=== PATIENT | male | born 1970 | race Caucasian/White ===

== ENCOUNTER 2018-07-28 04:01 | Emergency (ER) | payer OTHER | END 2018-07-28 04:33 | disposition home or self-care (01) | LOC: FTE 04:01 | DX: J02.9 Acute pharyngitis, unspecified (principal); Z87.891 Personal history of nicotine dependence | CPT/HCPCS: 99283 ==

== ENCOUNTER 2018-07-29 02:33 | Emergency (ER) | payer OTHER ==
[2018-07-29] MEDS: DEXAMETHASONE 10 MG/ML 1 ML INJ IM ×2 (03:27→03:40)
== END 2018-07-29 03:52 | disposition home or self-care (01) ==
LOC: FTE 02:33
DX: J02.9 Acute pharyngitis, unspecified (principal); Z87.891 Personal history of nicotine dependence
CPT/HCPCS: 96372; 99284-25

== ENCOUNTER 2018-08-13 14:26 | Emergency (ER) | payer OTHER ==
[2018-08-13] MEDS: ONDANSETRON 4 MG INJ IV (15:44)
[2018-08-13] MEDS: SOD CHLORIDE 0.9% 1,000 ML IV (15:44)
[2018-08-13] MEDS: HYDROmorphONE 1 MG/ML SYG IV (15:44)
[2018-08-13 15:54] LABS: ADD MAN DIFF? NO
[2018-08-13 16:02] LABS: BASOPHILS % 0.2 % (0.0-2.0); EOSINOPHILS % 0.1 % (0.0-7.0); HEMATOCRIT 43.8 % (42.0-52.0); HEMOGLOBIN 15.2 g/dl (14.0-18.0); LYMPHOCYTES # 2.6 10^3/ul (0.8-2.9); LYMPHOCYTES % 17.7 % (15.0-51.0); MEAN CORPUSCULAR HEMOGLOBIN 31.8 pg (29.0-33.0); MEAN CORPUSCULAR HGB CONC 34.7 g/dl (32.0-37.0); MEAN CORPUSCULAR VOLUME 91.6 fl (82.0-101.0); MEAN PLATELET VOLUME 9.3 fl (7.4-10.4); MONOCYTE # 0.8 10^3/ul (0.3-0.9); MONOCYTES % 5.1 % (0.0-11.0); NEUTROPHIL # 11.4 10^3/ul (1.6-7.5); NEUTROPHILS % 76.5 % (39.0-77.0); PLATELET COUNT 331 10^3/UL (140-415); RED BLOOD COUNT 4.78 10^6/ul (4.70-6.10); RED CELL DISTRIBUTION WIDTH 11.9 % (11.5-14.5)
[2018-08-13 16:02] LABS: WHITE BLOOD COUNT 14.8 10^3/ul (4.8-10.8)
[2018-08-13 16:18] LABS: ANION GAP 12 (5-13); BLOOD UREA NITROGEN 25 mg/dl (7-20); CALCIUM 9.7 mg/dl (8.4-10.2); CARBON DIOXIDE 28 mmol/L (21-31); CHLORIDE 102 mmol/L (97-110); CREATININE 0.86 mg/dl (0.61-1.24); Estimated GFR > 60 mL/min (>60); GLUCOSE 102 mg/dl (70-220); SODIUM 142 mmol/L (135-144)
[2018-08-13 16:19] LABS: ALANINE AMINOTRANSFERASE 84 IU/L (13-69); ALBUMIN 4.9 g/dl (3.3-4.9); ALBUMIN/GLOBULIN RATIO 1.16; ALKALINE PHOSPHATASE 138 IU/L (42-121); ASPARTATE AMINO TRANSFERASE 48 IU/L (15-46); BILIRUBIN,INDIRECT 0.5 mg/dl (0-1.1); BILIRUBIN,TOTAL 0.5 mg/dl (0.2-1.3); LIPASE 45 U/L (23-300); TOTAL PROTEIN 9.1 g/dl (6.1-8.1)
[2018-08-13 16:30] LABS: TROPONIN-I < 0.012 ng/ml (0.000-0.120)
[2018-08-13] MEDS: SOD CHLORIDE 0.9% 100 ML (16:50)
[2018-08-13] MEDS: IOHEXOL 300MG/ML 150 ML BTL (16:51)
[2018-08-13 17:11] LABS: ADD UMIC NO; UR ASCORBIC ACID NEGATIVE (NEGATIVE); UR BILIRUBIN (Dip) NEGATIVE (NEGATIVE); UR BLOOD (Dip) NEGATIVE (NEGATIVE); UR CLARITY CLEAR (CLEAR); UR COLOR YELLOW (YELLOW); UR GLUCOSE (Dip) NEGATIVE (NEGATIVE); UR KETONES (Dip) NEGATIVE (NEGATIVE); UR LEUKOCYTE ESTERASE (Dip) NEGATIVE Leu/ul (NEGATIVE); UR NITRITE (Dip) NEGATIVE (NEGATIVE); UR SPECIFIC GRAVITY (Dip) 1.048 (1.003-1.030); UR TOTAL PROTEIN (Dip) NEGATIVE (NEGATIVE); UR UROBILINOGEN (Dip) 1+ mg/dL (NEGATIVE)
[2018-08-13] MEDS: KETOROLAC 30 MG INJ IV (18:01)
[2018-08-13] MEDS: PIPER-TAZO 3.375 GM IV (PMX) 100 ML IVPB (18:01)
== END 2018-08-13 19:10 | disposition home or self-care (01) ==
LOC: FTE 14:26
DX: K80.20 Calculus of gallbladder without cholecystitis without obstruction (principal); F17.210 Nicotine dependence, cigarettes, uncomplicated
CPT/HCPCS: 36415; 71045; 74177; 80053; 81003; 83690; 84484; 85025; 93005; 96374; 96375; 99285-25

== ENCOUNTER 2018-08-16 15:02 | Inpatient (IN) | payer OTHER ==
[2018-08-16 16:28] LABS: ADD MAN DIFF? NO
[2018-08-16] MEDS: morphine 4 MG/ML VIAL IV ×2 (16:33→19:48)
[2018-08-16] MEDS: ONDANSETRON 4 MG INJ IV ×2 (16:33→19:48)
[2018-08-16] MEDS: SOD CHLORIDE 0.9% 1,000 ML IV ×2 (16:34→22:09)
[2018-08-16 16:38] LABS: WHITE BLOOD COUNT 9.2 10^3/ul (4.8-10.8)
[2018-08-16 16:38] LABS: BASOPHILS % 0.2 % (0.0-2.0); EOSINOPHILS % 0.2 % (0.0-7.0); HEMATOCRIT 41.3 % (42.0-52.0); HEMOGLOBIN 14.5 g/dl (14.0-18.0); LYMPHOCYTES # 2.6 10^3/ul (0.8-2.9); MEAN CORPUSCULAR HEMOGLOBIN 32.2 pg (29.0-33.0); MEAN CORPUSCULAR HGB CONC 35.1 g/dl (32.0-37.0); MEAN CORPUSCULAR VOLUME 91.8 fl (82.0-101.0); MEAN PLATELET VOLUME 9.1 fl (7.4-10.4); MONOCYTE # 0.6 10^3/ul (0.3-0.9); MONOCYTES % 6.2 % (0.0-11.0); NEUTROPHILS % 65.1 % (39.0-77.0); PLATELET COUNT 312 10^3/UL (140-415); RED CELL DISTRIBUTION WIDTH 11.7 % (11.5-14.5)
[2018-08-16 16:44] LABS: ADD UMIC NO; UR ASCORBIC ACID NEGATIVE (NEGATIVE); UR BILIRUBIN (Dip) NEGATIVE (NEGATIVE); UR BLOOD (Dip) NEGATIVE (NEGATIVE); UR CLARITY CLEAR (CLEAR); UR COLOR YELLOW (YELLOW); UR GLUCOSE (Dip) NEGATIVE (NEGATIVE); UR KETONES (Dip) NEGATIVE (NEGATIVE); UR LEUKOCYTE ESTERASE (Dip) NEGATIVE Leu/ul (NEGATIVE); UR NITRITE (Dip) NEGATIVE (NEGATIVE); UR SPECIFIC GRAVITY (Dip) 1.012 (1.003-1.030); UR TOTAL PROTEIN (Dip) NEGATIVE (NEGATIVE); UR UROBILINOGEN (Dip) NEGATIVE (NEGATIVE)
[2018-08-16 16:57] LABS: ALANINE AMINOTRANSFERASE 67 IU/L (13-69); ALBUMIN 4.5 g/dl (3.3-4.9); ALBUMIN/GLOBULIN RATIO 1.18; ALKALINE PHOSPHATASE 121 IU/L (42-121); ANION GAP 9 (5-13); ASPARTATE AMINO TRANSFERASE 40 IU/L (15-46); BILIRUBIN,INDIRECT 0.5 mg/dl (0-1.1); BILIRUBIN,TOTAL 0.5 mg/dl (0.2-1.3); BLOOD UREA NITROGEN 22 mg/dl (7-20); CALCIUM 9.6 mg/dl (8.4-10.2); CARBON DIOXIDE 34 mmol/L (21-31); CHLORIDE 95 mmol/L (97-110); CREATININE 0.95 mg/dl (0.61-1.24); Estimated GFR > 60 mL/min (>60); GLUCOSE 100 mg/dl (70-220); LIPASE 44 U/L (23-300); POTASSIUM 4.5 mmol/L (3.5-5.1); SODIUM 138 mmol/L (135-144); TOTAL PROTEIN 8.3 g/dl (6.1-8.1)
[2018-08-16] MEDS ORDERED: ACETAMINOPHEN 325 MG TAB PO ×2 (19:00→21:00)
[2018-08-16] MEDS ORDERED: NACL 0.9% 3 ML SYG IV (21:00)
[2018-08-16] MEDS ORDERED: BISACODYL (EC) 5 MG TAB PO (21:00)
[2018-08-16] MEDS ORDERED: DOCUSATE SODIUM 100 MG CAP PO (21:00)
[2018-08-16] MEDS ORDERED: ONDANSETRON 4 MG INJ IV (21:00)
[2018-08-16] MEDS: HYDROmorphONE 0.5 MG/0.5 ML SYG IV (21:10)
[2018-08-16] MEDS: PIPER-TAZO 3.375 GM IV (PMX) 100 ML IVPB (22:09)
[2018-08-16] MEDS ORDERED: HYDROmorphONE 0.5 MG/0.5 ML SYG IV (23:00)
[2018-08-17] MEDS: PIPER-TAZO 3.375 GM IV (PMX) 100 ML IVPB ×3 (00:32→13:40)
[2018-08-17 05:18] LABS: ADD MAN DIFF? NO
[2018-08-17 05:21] LABS: BASOPHILS % 0.3 % (0.0-2.0); EOSINOPHILS % 0.6 % (0.0-7.0); HEMOGLOBIN 13.6 g/dl (14.0-18.0); LYMPHOCYTES # 2.2 10^3/ul (0.8-2.9); LYMPHOCYTES % 25.1 % (15.0-51.0); MEAN CORPUSCULAR HEMOGLOBIN 31.9 pg (29.0-33.0); MEAN CORPUSCULAR VOLUME 93.7 fl (82.0-101.0); MEAN PLATELET VOLUME 9.8 fl (7.4-10.4); MONOCYTES % 8.8 % (0.0-11.0); NEUTROPHIL # 5.6 10^3/ul (1.6-7.5); NEUTROPHILS % 64.9 % (39.0-77.0); PLATELET COUNT 276 10^3/UL (140-415); RED BLOOD COUNT 4.27 10^6/ul (4.70-6.10); RED CELL DISTRIBUTION WIDTH 11.9 % (11.5-14.5)
[2018-08-17 05:21] LABS: WHITE BLOOD COUNT 8.7 10^3/ul (4.8-10.8)
[2018-08-17 05:22] LABS: EOSINOPHILS # 0.1 10^3/ul (0.0-0.5); MONOCYTE # 0.8 10^3/ul (0.3-0.9)
[2018-08-17 05:48] LABS: ALANINE AMINOTRANSFERASE 61 IU/L (13-69); ALBUMIN 4.2 g/dl (3.3-4.9); ALKALINE PHOSPHATASE 104 IU/L (42-121); ANION GAP 8 (5-13); ASPARTATE AMINO TRANSFERASE 37 IU/L (15-46); BILIRUBIN,INDIRECT 0.6 mg/dl (0-1.1); BILIRUBIN,TOTAL 0.6 mg/dl (0.2-1.3); BLOOD UREA NITROGEN 22 mg/dl (7-20); CALCIUM 9.3 mg/dl (8.4-10.2); CARBON DIOXIDE 34 mmol/L (21-31); CHLORIDE 98 mmol/L (97-110); CHOL/HDL RATIO 4.5 RATIO; CHOLESTEROL 123 mg/dl (100-200); CREATININE 1.05 mg/dl (0.61-1.24); Estimated GFR > 60 mL/min (>60); GLUCOSE 87 mg/dl (70-220); HDL CHOLESTEROL 27 mg/dl (28-71); LDL CHOLESTEROL,CALCULATED 75 mg/dl; MAGNESIUM 2.1 mg/dl (1.7-2.5); POTASSIUM 5.1 mmol/L (3.5-5.1); SODIUM 140 mmol/L (135-144); TOTAL PROTEIN 7.2 g/dl (6.1-8.1); TRIGLYCERIDES 103 mg/dl (0-149)
[2018-08-17] MEDS: SOD CHLORIDE 0.9% 1,000 ML IV (05:48)
[2018-08-17 06:25] LABS: INR 1.03; PARTIAL THROMBOPLASTIN TIME 28.8 Sec (23.0-35.0); PROTIME 13.6 Sec (11.9-14.9); PT RATIO 1.1
[2018-08-17 07:10] LABS: HEMOGLOBIN A1C 5.3 % (0-5.9)
[2018-08-17] MEDS: HYDROmorphONE 1 MG/ML SYG IV (23:57)
[2018-08-18 06:00] LABS: ADD MAN DIFF? NO
[2018-08-18 06:01] LABS: WHITE BLOOD COUNT 8.3 10^3/ul (4.8-10.8)
[2018-08-18 06:01] LABS: BASOPHIL # 0.1 10^3/ul (0.0-0.1); BASOPHILS % 0.6 % (0.0-2.0); EOSINOPHILS # 0.1 10^3/ul (0.0-0.5); EOSINOPHILS % 1.2 % (0.0-7.0); HEMATOCRIT 42.2 % (42.0-52.0); HEMOGLOBIN 14.6 g/dl (14.0-18.0); LYMPHOCYTES # 2.6 10^3/ul (0.8-2.9); LYMPHOCYTES % 31.4 % (15.0-51.0); MEAN CORPUSCULAR HEMOGLOBIN 32.3 pg (29.0-33.0); MEAN CORPUSCULAR HGB CONC 34.6 g/dl (32.0-37.0); MEAN CORPUSCULAR VOLUME 93.4 fl (82.0-101.0); MEAN PLATELET VOLUME 9.8 fl (7.4-10.4); MONOCYTE # 0.6 10^3/ul (0.3-0.9); MONOCYTES % 7.6 % (0.0-11.0); NEUTROPHIL # 4.9 10^3/ul (1.6-7.5); NEUTROPHILS % 58.8 % (39.0-77.0); PLATELET COUNT 288 10^3/UL (140-415); RED BLOOD COUNT 4.52 10^6/ul (4.70-6.10); RED CELL DISTRIBUTION WIDTH 11.8 % (11.5-14.5)
[2018-08-18 06:31] LABS: ALANINE AMINOTRANSFERASE 84 IU/L (13-69); ALBUMIN 4.3 g/dl (3.3-4.9); ALBUMIN/GLOBULIN RATIO 1.19; ALKALINE PHOSPHATASE 138 IU/L (42-121); ANION GAP 9 (5-13); ASPARTATE AMINO TRANSFERASE 48 IU/L (15-46); BILIRUBIN,INDIRECT 0.4 mg/dl (0-1.1); BILIRUBIN,TOTAL 0.4 mg/dl (0.2-1.3); BLOOD UREA NITROGEN 20 mg/dl (7-20); CALCIUM 9.6 mg/dl (8.4-10.2); CARBON DIOXIDE 33 mmol/L (21-31); CHLORIDE 99 mmol/L (97-110); CREATININE 0.94 mg/dl (0.61-1.24); Estimated GFR > 60 mL/min (>60); GLUCOSE 94 mg/dl (70-220); POTASSIUM 4.7 mmol/L (3.5-5.1); SODIUM 141 mmol/L (135-144); TOTAL PROTEIN 7.9 g/dl (6.1-8.1)
[2018-08-18 06:32] LABS: CHOL/HDL RATIO 3.7 RATIO; CHOLESTEROL 140 mg/dl (100-200); HDL CHOLESTEROL 37 mg/dl (28-71); LDL CHOLESTEROL,CALCULATED 84 mg/dl; MAGNESIUM 2.1 mg/dl (1.7-2.5); TRIGLYCERIDES 95 mg/dl (0-149)
== END 2018-08-18 14:51 | disposition home or self-care (01) | DRG 445 ==
LOC: E/R 15:02 → PP2 18:53
DX: K80.10 Calculus of gallbladder with chronic cholecystitis without obstruction (principal); E87.3 Alkalosis; M54.9 Dorsalgia, unspecified; G47.30 Sleep apnea, unspecified; E66.9 Obesity, unspecified; Z68.37 Body mass index [BMI] 37.0-37.9, adult; E86.0 Dehydration
CPT/HCPCS: 36415; 72072; 72100; 76705; 80053; 80061; 81003; 83036; 83690; 83735; 84100; 84443; 85025; 85610; 85730; 94660; 96361; 96374; 96375; 99285-25

== ENCOUNTER 2018-09-01 02:11 | Inpatient (IN) | payer OTHER ==
[2018-09-01] MEDS ORDERED: ONDANSETRON 4 MG INJ ×2 (02:41→19:24)
[2018-09-01] MEDS ORDERED: morphine 4 MG/ML VIAL (02:42)
[2018-09-01 02:45] LABS: ADD MAN DIFF? NO
[2018-09-01 02:47] LABS: WHITE BLOOD COUNT 6.9 10^3/ul (4.8-10.8)
[2018-09-01 02:47] LABS: BASOPHILS % 0.4 % (0.0-2.0); EOSINOPHILS # 0.2 10^3/ul (0.0-0.5); EOSINOPHILS % 2.3 % (0.0-7.0); HEMATOCRIT 42.4 % (42.0-52.0); HEMOGLOBIN 14.5 g/dl (14.0-18.0); LYMPHOCYTES # 3.8 10^3/ul (0.8-2.9); LYMPHOCYTES % 55.5 % (15.0-51.0); MEAN CORPUSCULAR HEMOGLOBIN 31.3 pg (29.0-33.0); MEAN CORPUSCULAR HGB CONC 34.2 g/dl (32.0-37.0); MEAN CORPUSCULAR VOLUME 91.4 fl (82.0-101.0); MEAN PLATELET VOLUME 9.8 fl (7.4-10.4); MONOCYTE # 0.5 10^3/ul (0.3-0.9); MONOCYTES % 6.8 % (0.0-11.0); NEUTROPHIL # 2.4 10^3/ul (1.6-7.5); PLATELET COUNT 239 10^3/UL (140-415); RED BLOOD COUNT 4.64 10^6/ul (4.70-6.10)
[2018-09-01] MEDS: SOD CHLORIDE 0.9% 1,000 ML IV ×4 (02:55→18:33)
[2018-09-01] MEDS: ONDANSETRON 4 MG INJ IV ×2 (02:55→20:23)
[2018-09-01] MEDS: morphine 4 MG/ML VIAL IV (02:55)
[2018-09-01 03:16] LABS: ALANINE AMINOTRANSFERASE 55 IU/L (13-69); ALBUMIN 4.4 g/dl (3.3-4.9); ALBUMIN/GLOBULIN RATIO 1.18; ALKALINE PHOSPHATASE 149 IU/L (42-121); ANION GAP 10 (5-13); ASPARTATE AMINO TRANSFERASE 39 IU/L (15-46); BILIRUBIN,INDIRECT 0.2 mg/dl (0-1.1); BILIRUBIN,TOTAL 0.2 mg/dl (0.2-1.3); BLOOD UREA NITROGEN 21 mg/dl (7-20); CALCIUM 9.6 mg/dl (8.4-10.2); CARBON DIOXIDE 28 mmol/L (21-31); CHLORIDE 105 mmol/L (97-110); Estimated GFR > 60 mL/min (>60); GLUCOSE 115 mg/dl (70-220); LIPASE 131 U/L (23-300); POTASSIUM 4.2 mmol/L (3.5-5.1); SODIUM 143 mmol/L (135-144); TOTAL PROTEIN 8.1 g/dl (6.1-8.1)
[2018-09-01] MEDS ORDERED: HYDROmorphONE 1 MG/ML SYG (03:21)
[2018-09-01] MEDS: HYDROmorphONE 1 MG/ML SYG IV (03:30)
[2018-09-01] MEDS: HYDROmorphONE 0.5 MG/0.5 ML SYG IV ×3 (03:56→11:36)
[2018-09-01] MEDS: LIDOCAINE/MYLANTA 40 ML BTL PO (03:57)
[2018-09-01] MEDS ORDERED: DOCUSATE SODIUM 100 MG CAP PO (06:30)
[2018-09-01] MEDS ORDERED: ONDANSETRON 4 MG INJ IV ×2 (06:30→21:00)
[2018-09-01] MEDS ORDERED: NACL 0.9% 3 ML SYG IV (06:30)
[2018-09-01] MEDS ORDERED: BISACODYL (EC) 5 MG TAB PO (06:30)
[2018-09-01] MEDS ORDERED: ACETAMINOPHEN 325 MG TAB PO ×2 (06:30→21:00)
[2018-09-01] MEDS: PIPER-TAZO 3.375 GM IV (PMX) 100 ML IVPB ×3 (06:43→18:28)
[2018-09-01 10:03] LABS: ADD UMIC NO; UR ASCORBIC ACID NEGATIVE (NEGATIVE); UR BILIRUBIN (Dip) NEGATIVE (NEGATIVE); UR BLOOD (Dip) NEGATIVE (NEGATIVE); UR CLARITY SLIGHTLY CLOUDY (CLEAR); UR COLOR YELLOW (YELLOW); UR GLUCOSE (Dip) NEGATIVE (NEGATIVE); UR KETONES (Dip) 2+ mg/dL (NEGATIVE); UR LEUKOCYTE ESTERASE (Dip) NEGATIVE Leu/ul (NEGATIVE); UR MUCUS FEW /HPF (NONE SEEN); UR NITRITE (Dip) NEGATIVE (NEGATIVE); UR RBC 2 /HPF (0-5); UR SPECIFIC GRAVITY (Dip) 1.023 (1.003-1.030); UR TOTAL PROTEIN (Dip) NEGATIVE (NEGATIVE); UR UROBILINOGEN (Dip) 2+ mg/dL (NEGATIVE); UR WBC 2 /HPF (0-5)
[2018-09-01] MEDS: HYDROCODONE/APAP (10/325) TAB PO (13:18)
[2018-09-01] MEDS ORDERED: MEPERIDINE 25 MG INJ IV (18:30)
[2018-09-01] MEDS ORDERED: METOCLOPRAMIDE 10 MG INJ IV (18:30)
[2018-09-01] MEDS ORDERED: hydrALAzine 20 MG INJ IV (18:30)
[2018-09-01] MEDS ORDERED: EPHEDrine SULFATE 50 MG/5 ML SYG IV (18:30)
[2018-09-01] MEDS ORDERED: FENTAnyl 50 MCG/ML VIAL IV ×3 (18:30)
[2018-09-01] MEDS ORDERED: HYDROmorphONE 1 MG/5 ML IV SYRINGE IV ×2 (18:30)
[2018-09-01] MEDS ORDERED: LABETALOL HCL 20MG INJ IV (18:30)
[2018-09-01] MEDS ORDERED: OXYCODONE/ACETAMINOPHEN (5/325) TAB PO ×2 (18:30)
[2018-09-01] MEDS ORDERED: DIPHENHYDRAMINE 50 MG INJ IV (18:30)
[2018-09-01] MEDS ORDERED: MIDAZOLAM 1 MG/ML 2 ML INJ (18:33)
[2018-09-01] MEDS ORDERED: HYDROmorphONE 2 MG/ML SYG (18:33)
[2018-09-01] MEDS ORDERED: ROCURONIUM 50 MG INJ (18:33)
[2018-09-01] MEDS ORDERED: PROPOFOL 20 ML ×2 (18:33→19:54)
[2018-09-01] MEDS ORDERED: ROPIVACAINE 0.5 % 30 ML VIAL (18:35)
[2018-09-01] MEDS: BUPIVACAINE 0.25% (MPF) 30 ML INJ (19:03)
[2018-09-01] MEDS: LIDOCAINE 1%/EPI 30 ML INJ (19:03)
[2018-09-01] MEDS ORDERED: KETOROLAC 30 MG INJ (19:24)
[2018-09-01] MEDS ORDERED: SUGAMMADEX SODIUM 200 MG/2 ML VIAL IV (19:24)
[2018-09-01] MEDS ORDERED: METOCLOPRAMIDE 10 MG INJ (19:24)
[2018-09-01] MEDS ORDERED: DEXAMETHASONE 4 MG/ML 1 ML INJ (19:24)
[2018-09-01] MEDS ORDERED: LABETALOL HCL 20MG INJ (19:29)
[2018-09-01] MEDS: HYDROmorphONE 1 MG/5 ML IV SYRINGE IV (20:23)
[2018-09-01] MEDS ORDERED: HYDROCODONE/APAP (5/325) TAB PO (21:00)
[2018-09-01] MEDS: D5W-0.45 NACL + KCL 20 MEQ 1,000 ML IV (21:31)
[2018-09-02] MEDS: PIPER-TAZO 3.375 GM IV (PMX) 100 ML IVPB ×5 (00:12→23:57)
[2018-09-02] MEDS: D5W-0.45 NACL + KCL 20 MEQ 1,000 ML IV ×3 (06:08→21:07)
[2018-09-02 06:58] LABS: ADD MAN DIFF? NO
[2018-09-02 07:08] LABS: WHITE BLOOD COUNT 8.9 10^3/ul (4.8-10.8)
[2018-09-02 07:08] LABS: BASOPHILS % 0.2 % (0.0-2.0); EOSINOPHILS % 0.1 % (0.0-7.0); HEMATOCRIT 39.7 % (42.0-52.0); HEMOGLOBIN 13.4 g/dl (14.0-18.0); LYMPHOCYTES # 1.2 10^3/ul (0.8-2.9); MEAN CORPUSCULAR HEMOGLOBIN 31.5 pg (29.0-33.0); MEAN CORPUSCULAR HGB CONC 33.8 g/dl (32.0-37.0); MEAN CORPUSCULAR VOLUME 93.2 fl (82.0-101.0); MEAN PLATELET VOLUME 9.9 fl (7.4-10.4); MONOCYTE # 0.5 10^3/ul (0.3-0.9); MONOCYTES % 5.6 % (0.0-11.0); NEUTROPHIL # 7.2 10^3/ul (1.6-7.5); NEUTROPHILS % 80.8 % (39.0-77.0); PLATELET COUNT 218 10^3/UL (140-415); RED BLOOD COUNT 4.26 10^6/ul (4.70-6.10); RED CELL DISTRIBUTION WIDTH 12.1 % (11.5-14.5)
[2018-09-02 07:18] LABS: HEMOGLOBIN A1C 5.3 % (0-5.9)
[2018-09-02 07:44] LABS: ALANINE AMINOTRANSFERASE 79 IU/L (13-69); ALBUMIN 4.1 g/dl (3.3-4.9); ALBUMIN/GLOBULIN RATIO 1.51; ALKALINE PHOSPHATASE 92 IU/L (42-121); ANION GAP 9 (5-13); ASPARTATE AMINO TRANSFERASE 68 IU/L (15-46); BILIRUBIN,INDIRECT 0.7 mg/dl (0-1.1); BILIRUBIN,TOTAL 0.7 mg/dl (0.2-1.3); BLOOD UREA NITROGEN 13 mg/dl (7-20); CALCIUM 9.2 mg/dl (8.4-10.2); CARBON DIOXIDE 28 mmol/L (21-31); CHLORIDE 104 mmol/L (97-110); CREATININE 0.85 mg/dl (0.61-1.24); Estimated GFR > 60 mL/min (>60); GLUCOSE 127 mg/dl (70-220); MAGNESIUM 1.9 mg/dl (1.7-2.5); POTASSIUM 4.7 mmol/L (3.5-5.1); SODIUM 141 mmol/L (135-144); TOTAL PROTEIN 6.8 g/dl (6.1-8.1)
[2018-09-02 07:53] LABS: T3 UPTAKE 35.2 % (23.5-40.5); T4 (THYROXINE) 8.8 ug/dl (5.5-11.0)
[2018-09-02] MEDS: HYDROmorphONE 0.5 MG/0.5 ML SYG IV ×3 (08:01→17:01)
[2018-09-02] MEDS: SOD CHLORIDE 0.9% 1,000 ML IV ×2 (08:01→19:33)
[2018-09-02] MEDS: ENOXAPARIN 40 MG/0.4 ML SYG SC (08:06)
[2018-09-02 08:07] LABS: THYROID STIMULATING HORMONE 0.415 MIU/L (0.465-4.680)
[2018-09-03] MEDS: D5W-0.45 NACL + KCL 20 MEQ 1,000 ML IV ×3 (02:32→12:32)
[2018-09-03] MEDS: KETOROLAC 30 MG INJ IV ×2 (03:16→09:51)
[2018-09-03] MEDS: PIPER-TAZO 3.375 GM IV (PMX) 100 ML IVPB ×2 (05:44→11:36)
[2018-09-03] MEDS: ENOXAPARIN 40 MG/0.4 ML SYG SC (06:27)
[2018-09-03 07:24] LABS: ADD MAN DIFF? NO
[2018-09-03 07:30] LABS: BASOPHILS % 0.7 % (0.0-2.0); EOSINOPHILS # 0.1 10^3/ul (0.0-0.5); EOSINOPHILS % 1.5 % (0.0-7.0); HEMATOCRIT 37.1 % (42.0-52.0); HEMOGLOBIN 12.5 g/dl (14.0-18.0); LYMPHOCYTES # 2.3 10^3/ul (0.8-2.9); LYMPHOCYTES % 37.3 % (15.0-51.0); MEAN CORPUSCULAR HEMOGLOBIN 31.6 pg (29.0-33.0); MEAN CORPUSCULAR HGB CONC 33.7 g/dl (32.0-37.0); MEAN CORPUSCULAR VOLUME 93.7 fl (82.0-101.0); MEAN PLATELET VOLUME 9.9 fl (7.4-10.4); MONOCYTE # 0.5 10^3/ul (0.3-0.9); MONOCYTES % 7.9 % (0.0-11.0); NEUTROPHIL # 3.2 10^3/ul (1.6-7.5); NEUTROPHILS % 52.3 % (39.0-77.0); PLATELET COUNT 207 10^3/UL (140-415); RED BLOOD COUNT 3.96 10^6/ul (4.70-6.10); RED CELL DISTRIBUTION WIDTH 12.1 % (11.5-14.5)
[2018-09-03 07:30] LABS: WHITE BLOOD COUNT 6.1 10^3/ul (4.8-10.8)
[2018-09-03 07:51] LABS: ALANINE AMINOTRANSFERASE 77 IU/L (13-69); ALKALINE PHOSPHATASE 82 IU/L (42-121); ANION GAP 6 (5-13); ASPARTATE AMINO TRANSFERASE 56 IU/L (15-46); BILIRUBIN,INDIRECT 0.6 mg/dl (0-1.1); BILIRUBIN,TOTAL 0.6 mg/dl (0.2-1.3); BLOOD UREA NITROGEN 14 mg/dl (7-20); CALCIUM 8.9 mg/dl (8.4-10.2); CARBON DIOXIDE 32 mmol/L (21-31); CHLORIDE 104 mmol/L (97-110); CREATININE 0.92 mg/dl (0.61-1.24); Estimated GFR > 60 mL/min (>60); GLUCOSE 103 mg/dl (70-220); POTASSIUM 4.5 mmol/L (3.5-5.1); SODIUM 142 mmol/L (135-144)
[2018-09-03 07:52] LABS: ALBUMIN 3.5 g/dl (3.3-4.9); ALBUMIN/GLOBULIN RATIO 1.12; TOTAL PROTEIN 6.6 g/dl (6.1-8.1)
[2018-09-03] MEDS: SOD CHLORIDE 0.9% 1,000 ML IV (08:03)
== END 2018-09-03 13:15 | disposition home or self-care (01) | DRG 419 ==
LOC: E/R 02:11 → 2NE 05:46
PROC: 0FT44ZZ Resection of Gallbladder, Percutaneous Endoscopic Approach (ICD-10-PCS; principal; 2018-09-01 17:00)
DX: K80.12 Calculus of gallbladder with acute and chronic cholecystitis without obstruction (principal); E66.9 Obesity, unspecified; Z68.39 Body mass index [BMI] 39.0-39.9, adult; R74.0 Nonspecific elevation of levels of transaminase and lactic acid dehydrogenase [LDH]; Z87.891 Personal history of nicotine dependence
CPT/HCPCS: 36415; 76705; 78226; 80053; 81001; 81003; 83036; 83690; 83735; 84436; 84443; 84479; 85025; 88304; 96374; 96375; 99285-25

== ENCOUNTER 2018-11-18 08:33 | Emergency (ER) | payer OTHER | END 2018-11-18 10:55 | disposition home or self-care (01) | LOC: FTE 08:33 | DX: J06.9 Acute upper respiratory infection, unspecified (principal); Z87.891 Personal history of nicotine dependence | CPT/HCPCS: 71045; 99283-25 ==